=== PATIENT | male | born 1995 | race Caucasian/White ===

== ENCOUNTER 2023-03-11 18:47 | Emergency (ER) | payer SELFPAY ==
[~2023-03-11] VITALS: Ht 165.1 cm; Wt 62.6 kg
[2023-03-11 19:41] VITALS: BP_SYST 129
--- NOTE | 2023-03-11 19:46 | NUR ---
Patient triaged and placed in waiting room. VSS and patient appears in no acute distress at this time. Accompanied by SELF, awaiting available bed, and MD notified of need for MSE.
--- NOTE | 2023-03-11 19:53 | NUR ---
Patient to ER bed 5 to gown for evaluation. Side rails up. Report given to Fabby WISE.
--- NOTE | 2023-03-11 19:53 | NUR ---
Received report from BILLIE Mojica; assuming care of patient at this time.
--- NOTE | 2023-03-11 19:54 | NUR ---
Komal martinez in ED - 03/11/23 at 1955 by HOSEAEDPR HUBER Rodriguez at bedside examining patient.
--- NOTE | 2023-03-11 19:54 | NUR ---
HUBER BISHOP Kwaw at bedside.
[2023-03-11] MEDS ORDERED: CEPH-548 PO (19:56)
[2023-03-11 19:59] VITALS: BP_SYST 130
--- NOTE | 2023-03-11 19:59 | NUR ---
Patient given written and verbal discharge instructions and verbalizes understanding. ER MD discussed with patient the results and treatment provided. Patient in stable condition. ID arm band removed. Rx of Cephalexin given. Patient educated on pain management and to follow up with PMD. Pain Scale 0/10. Opportunity for questions provided and answered. Medication side effect fact sheet provided. Patient ambulatory and in stable condition upon discharge. NAD noted at this time.
== END 2023-03-11 19:59 | disposition home or self-care (01) ==
LOC: SED 18:47
DX: L03.114 Cellulitis of left upper limb (principal); Z79.899 Other long term (current) drug therapy
CPT/HCPCS: 99283